=== PATIENT | male | born 1990 | race American Indian/Alaskan Native ===

== ENCOUNTER 2021-04-19 20:35 | Emergency (ER) | payer SELFPAY ==
--- NOTE | 2021-04-20 00:55 | Emergency Department Report ---
ED General Adult HPI - General Chief complaint: Psych Stated complaint: CHEST AND THROAT HURT,DEPRESSION Time Seen by Provider: 04/19/21 23:22 Source: patient, EMS Mode of arrival: Ambulatory Limitations: No Limitations - History of Present Illness Initial comments: The patient presents to the emergency department with a chief complaint of suicidal ideations for the last 3 days. Patient states he has a history of depression but denies a history of bipolar. Patient states 2 to 3 months ago he attempted suicide via ingestion of pills. Patient also complains of visual hallucinations but denies auditory hallucinations. Patient denies homicidal karolina ation. Patient states he currently does not have a plan of suicide. Patient denies chest pain, shortness breath, headache. -: days(s) (3) Severity scale (0 -10): 0 Consistency: constant Improves with: none Worsens with: none Associated Symptoms: denies other symptoms Treatments Prior to Arrival: none ED Review of Systems ROS: Stated complaint: CHEST AND THROAT HURT,DEPRESSION Other details as noted in HPI Constitutional: denies: chills, fever Eyes: denies: eye pain, eye discharge, vision change ENT: denies: ear pain, throat pain Respiratory: denies: cough, shortness of breath, wheezing Cardiovascular: denies: chest pain, palpitations Endocrine: no symptoms reported Gastrointestinal: denies: abdominal pain, nausea, diarrhea Genitourinary: denies: urgency, dysuria Musculoskeletal: denies: back pain, joint swelling, arthralgia Skin: denies: rash, lesions Neurological: denies: headache, weakness, paresthesias Psychiatric: visual hallucinations, suicidal thoughts. denies: anxiety, depression, auditory hallucinations, homicidal thoughts Hematological/Lymphatic: denies: easy bleeding, easy bruising ED Physical Exam - General Limitations: No Limitations General appearance: alert, in no apparent distress - Head Head exam: Present: atraumatic, normocephalic - Eye Eye exam: Present: normal appearance, PERRL, EOMI - ENT ENT exam: Present: mucous membranes moist - Neck Neck exam: Present: normal inspection - Respiratory Respiratory exam: Present: normal lung sounds bilaterally. Absent: respiratory distress - Cardiovascular Cardiovascular Exam: Present: regular rate, normal rhythm. Absent: systolic murmur, diastolic murmur, rubs, gallop - GI/Abdominal GI/Abdominal exam: Present: soft, normal bowel sounds. Absent: distended, tenderness - Rectal Rectal exam: Present: deferred - Extremities Exam Extremities exam: Present: normal inspection - Back Exam Back exam: Present: normal inspection - Neurological Exam Neurological exam: Present: alert, oriented X3, CN II-XII intact. Absent: motor sensory deficit - Psychiatric Psychiatric exam: Present: normal affect, normal mood - Skin Skin exam: Present: warm, dry, intact, normal color. Absent: rash ED Course Vital Signs 04/19/21 21:21 Temperature 98.9 F Pulse Rate 88 Respiratory 18 Rate Blood Pressure 128/77 O2 Sat by Pulse 99 Oximetry ED Medical Decision Making - Lab Data Result diagrams: 04/20/21 00:21 Lab Results 04/20/21 04/20/21 04/20/21 Range/Units 00: 00:21 00:21 Sodium 141 (137-145) mmol/L Potassium 3.7 (3.6-5.0) mmol/L Chloride 101.4 (98-107) mmol/L Carbon Dioxide 29 (22-30) mmol/L Anion Gap 14 mmol/L BUN 9 (9-20) mg/dL Creatinine 0.9 (0.8-1.3) mg/dL Estimated GFR > 60 ml/min BUN/Creatinine Ratio 10 % Glucose 84 (75-100) mg/dL Calcium 9.5 (8.4-10.2) mg/dL Total Bilirubin 2.10 H (0.1-1.2) mg/dL AST 27 (5-40) units/L ALT 26 (7-56) units/L Alkaline Phosphatase 78 (35-129) units/L Total Protein 7.9 (6.3-8.2) g/dL Albumin 4.8 (3.9-5) g/dL Albumin/Globulin Ratio 1.5 % Salicylates < 0.3 L (2.8-20.0) mg/dL Acetaminophen 5.0 L (10.0-30.0) ug/mL Plasma/Serum Alcohol (0-0.07) % 04/20/21 Range/Units 00:21 Sodium (137-145) mmol/L Potassium (3.6-5.0) mmol/L Chloride (98-107) mmol/L Carbon Dioxide (22-30) mmol/L Anion Gap mmol/L BUN (9-20) mg/dL Creatinine (0.8-1.3) mg/dL Estimated GFR ml/min BUN/Creatinine Ratio % Glucose (75-100) mg/dL Calcium (8.4-10.2) mg/dL Total Bilirubin (0.1-1.2) mg/dL AST (5-40) units/L ALT (7-56) units/L Alkaline Phosphatase (35-129) units/L Total Protein (6.3-8.2) g/dL Albumin (3.9-5) g/dL Albumin/Globulin Ratio % Salicylates (2.8-20.0) mg/dL Acetaminophen (10.0-30.0) ug/mL Plasma/Serum Alcohol < 0.01 (0-0.07) % - Medical Decision Making ED hold placed Awaiting medical clearance Awaiting mental health evaluation Critical care attestation.: If time is entered above; I have spent that time in minutes in the direct care of this critically ill patient, excluding procedure time. ED Disposition Clinical Impression: Suicidal ideation Disposition: [id number]/TX-[id number] PSY HOSP/PSY UNIT Is pt being admited?: No Does the pt Need Aspirin: No Condition: Stable
[2021-04-20 01:01] LABS: Alanine Aminotransferase 26 units/L (7-56); Albumin 4.8 g/dL (3.9-5); BUN/Creatinine Ratio 10; Blood Urea Nitrogen 9 mg/dL (9-20); Calcium 9.5 mg/dL (8.4-10.2); Hemolysis Index 4
[2021-04-20 01:27] LABS: Hematocrit 41.9 % (35.5-45.6); Mean Corpuscular HGB Conc 33 % (32-34); Mean Corpuscular Volume 82 fl (84-94); Platelet Count 185 K/mm3 (140-440); Red Blood Count 5.12 M/mm3 (3.65-5.03); Red Cell Distribution Width 13.8 % (13.2-15.2)
[2021-04-20 02:02] LABS: RBC Morphology Normal; Total Cells Counted 100
[2021-04-20 09:43] VITALS: BP 120/79
--- NOTE | 2021-04-20 10:43 | Event Note ---
S: No complaints, O: Calm cooperative stable vital signs A: Suicidal ideation, major depressive disorder, patient is medically clear for psychiatric care P: Patient is medically clear for psychiatric care
--- NOTE | 2021-04-20 11:09 | Consultation ---
History of Present Illness - Reason for Consult Consult date: 04/20/21 Reason for consult: Stress - History of Present Psychiatric Illness Per ER Note: The patient presents to the emergency department with a chief complaint of suicidal ideations for the last 3 days. Patient states he has a history of depression but denies a history of bipolar. Patient states 2 to 3 months ago he attempted suicide via ingestion of pills. Patient also complains of visual hallucinations but denies auditory hallucinations. Patient denies homicidal ideation. Patient states he currently does not have a plan of suicide. Patient denies chest pain, shortness breath, headache. Sohail Braswell is a 30y/o male patient who was seen today who states he's been under a lot of stress. He says "the stress got to me, and I start feeling like that when I need someone to talk to." The patient says he is from [place] and the person who was going to let him live with him "bailed out on me." He says he wants to go back to [place] by [facility]. He says he's going to call his mother to see if she can help him. The patient denies SI/HI. He says "I'm not suicidal. I was just stressed." He says "I was when I came in because I was just trying to figure things out and see where I would stay." The patient also denies hallucinations of any kind. He denies being on any psych meds and states that he has a history of depression. He denies any illicit drug use, alcohol or nicotin e. PAST PSYCHIATRIC HISTORY: Diagnoses: Depression Suicide attempts or Self-harm behavior: once Prior psychiatric hospitalizations: Denies Substance Abuse history: Denies Previous psychiatric medications tried: been off Outpatient treatment: Denies PAST MEDICAL HISTORY: None reported Family Psychiatric History: None reported or documented SOCIAL HISTORY Marital Status: single Living Arrangements: Homeless Employment Status: Unemployed Access to guns/weapons: Denies Education: high school History of Abuse: None reported Legal History: None reported REVIEW OF SYSTEMS Constitutional: Negative for weight loss ENT: Negative for stridor Respiratory: Negative for cough or hemoptysis All other systems reviewed and are negative MENTAL STATUS EXAMINATION General Appearance and Behavior: Age appropriate, good hygiene, not wearing appropriate clothes, good eye contact, cooperative polite with questioning. Cooperation: Participating/engaged Psychomotor Behavior: Psychomotor agitation Mood: okay, but stressed at times Affect and affective range: Congruent with stated mood Thought Process: goal directed Thought Content: None Speech: Normal tone and pace Intellectual Functioning: Average Suicidal Ideation: Denies Homicidal Ideation: Denies Hallucinations: Denies Delusions: None elicited Impulse Control:Unimpaired Insight and Judgment: Limited insight and judgment Memory: Normal Attention: Undivided attention impaired Orientation: Alert, oriented Assessment and Plan (1) Major Depressive Disorder Current Visit: Yes Status: Acute Treatment Plan no meds at this time Sitter: Per primary Medical: Per primary Disposition: Do not recommend acute psychiatric inpatient treatment Will sign off. Thank you The regulatory coordinator to give the patient resources for CBT, group home, med management The patient is to be given a transportation pass The regulatory coordinator to further discuss safety plan The patient to follow up in 7 to 14 days upon discharge Case staffed with Dr. Augustin Medications and Allergies Allergies Allergy/AdvReac Type Severity Reaction Status Date / Time No Known Allergies Allergy Unverified 04/20/21 08:49 Mental Status Exam - Vital signs Last Vital Signs Temp 97.6 F 04/20/21 04:19 Pulse 78 04/20/21 09:35 Resp 18 04/20/21 09:35 BP 120/79 04/20/21 09:35 Pulse Ox 96 04/20/21 09:35 Results Result Diagrams: 04/20/21 00:21 04/20/21 00:21 Abnormal lab results 04/20/21 04/20/21 04/20/21 Range/Units 00:21 00:21 00:21 WBC 3.5 L (4.5-11.0) K/mm3 RBC 5.12 H (3.65-5.03) M/mm3 MCV 82 L (84-94) fl MCH 27 L (28-32) pg Lymphocytes % (Manual) 42.0 H (13.4-35.0) % Monocytes % (Manual) 13.0 H (0.0-7.3) % Seg Neutrophils # Man 1.5 L (1.8-7.7) K/mm3 Total Bilirubin (0.1-1.2) mg/dL Salicylates < 0.3 L (2.8-20.0) mg/dL Acetaminophen 5.0 L (10.0-30.0) ug/mL 04/20/21 Range/Units 00:21 WBC (4.5-11.0) K/mm3 RBC (3.65-5.03) M/mm3 MCV (84-94) fl MCH (28-32) pg Lymphocytes % (Manual) (13.4-35.0) % Monocytes % (Manual) (0.0-7.3) % Seg Neutrophils # Man (1.8-7.7) K/mm3 Total Bilirubin 2.10 H (0.1-1.2) mg/dL Salicylates (2.8-20.0) mg/dL Acetaminophen (10.0-30.0) ug/mL All other labs normal.
== END 2021-04-20 12:00 | disposition home or self-care (01) ==
LOC: ED 20:35
DX: R45.851 Suicidal ideations (principal); F31.9 Bipolar disorder, unspecified
CPT/HCPCS: 36415; 80053; 80320; 85007; 85025; 99284; G0480